=== PATIENT | male | born 1995 | race Caucasian/White ===

== ENCOUNTER 2018-02-27 11:33 | Emergency (ER) | payer BC ==
[~2018-02-27] VITALS: Ht 167.6 cm; Wt 66.2 kg
[2018-02-27 11:52] VITALS: BP 126/72
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
--- NOTE | 2018-02-27 12:08 | NUR ---
Patient being evaluated by physician at bedside.
[2018-02-27] MEDS ORDERED: cefTRIAXone 1,000 MG in LIDOCAINE 1% ***ER ONLY *** 2.1 ML IM ONE (12:10)
[2018-02-27] MEDS ORDERED: cefTRIAXone 1,000 MG VIAL ONE (12:29)
[2018-02-27] MEDS ORDERED: LIDOCAINE MPF 1% - 5 mL VIAL 5 ML ONE (12:30)
[2018-02-27 12:56] VITALS: BP 125/71
== END 2018-02-27 12:56 | disposition home or self-care (01) ==
LOC: MED 11:33
DX: S01.511D Laceration without foreign body of lip, subsequent encounter (principal); Y04.0XXD Assault by unarmed brawl or fight, subsequent encounter
CPT/HCPCS: 90471; 90715; 96372; 99284; J0696; J2001